=== PATIENT | female | born 1990 | race Caucasian/White ===

== ENCOUNTER 2021-12-12 16:40 | Emergency (ER) | payer BC ==
[~2021-12-12] VITALS: Ht 162.6 cm; Wt 70.2 kg
[2021-12-12 16:51] VITALS: BP 126/74
[2021-12-12] MEDS ORDERED: acetaminophen 325mg tablet PO STA (16:56)
[2021-12-12] MEDS ORDERED: normal saline 1000ML IV soln IV ONE (17:00)
[2021-12-12 17:22] LABS: URINE HCG NEGATIVE (NEG)
[2021-12-12 17:24] LABS: BASOPHILS % (AUTO) 0.4 % (0-1); EOSINOPHILS # (AUTO) 0.1 X10'3 (0-0.9); EOSINOPHILS % (AUTO) 0.6 % (0-6); HEMOGLOBIN 13.3 g/dl (12.0-16.0); LYMPHOCYTES # (AUTO) 1.2 X10'3 (1.1-4.8); LYMPHOCYTES % (AUTO) 9.1 % (21-51); MEAN CORPUSCULAR HGB CONC 34.2 g/dL (33.0-36.5); MEAN CORPUSCULAR VOLUME 87.7 FL (78-98); MEAN PLATELET VOLUME 7.3 FL (7.4-10.4); MONOCYTES # (AUTO) 0.6 X10'3 (0-0.9); MONOCYTES % (AUTO) 4.5 % (2-12); NEUTROPHILS # (AUTO) 11.1 X10'3 (1.8-7.7); NEUTROPHILS % (AUTO) 85.4 % (42-75); PLATELET COUNT 290 X10'3 (140-440); RED BLOOD COUNT 4.44 X10'6 (4.20-5.60); RED CELL DISTRIBUTION WIDTH 12.8 % (11.5-14.5)
[2021-12-12 17:25] LABS: CLARITY,URINE CLOUDY (Clear); GLUCOSE, URINE NEGATIVE (Neg); KETONES,URINE NEGATIVE (Neg); LEUKOCYTE ESTERASE ,URINE MODERATE (Neg); NITRITES, URINE NEGATIVE (Neg); OCCULT BLOOD,URINE MODERATE (Neg); PH,URINE 7.5 (4.8-8.0); PROTEIN,URINE NEGATIVE (Neg); UROBILINOGEN,URINE 0.2 E.U/dL (0.2-1.0)
[2021-12-12 17:28] LABS: COLOR,URINE STRAW (Yellow); UA COLLECTION TYPE CLN CATCH MIDSTREAM
[2021-12-12 17:30] LABS: SQUAMOUS EPITHELIAL CELL,UR FEW /LPF (FEW)
[2021-12-12] MEDS ORDERED: ondansetron/PF 4mg/2ml inj IV ONE (17:30)
[2021-12-12] MEDS ORDERED: normal saline 1000ML IV soln IVB ONE (17:30)
[2021-12-12] MEDS ORDERED: morphine 4 MG/ML inj SYRINge IV PRN (17:30)
[2021-12-12 17:31] LABS: BACTERIA,URINE 1+ /HPF (Neg); RBC,URINE 0-2 /HPF (0-2); WBC CLUMPS,URINE FEW /HPF (NEGATIVE); WBC,URINE 20-30 /HPF (0-4)
[2021-12-12 17:34] LABS: ALANINE AMINOTRANSFERASE 38 U/L (12-78); ALKALINE PHOSPHATASE 68 IU/L (46-116); ANION GAP 8 (8-16); ASPARTATE AMINO TRANSFERASE 19 U/L (10-37); BILIRUBIN,TOTAL 0.5 MG/DL (0.1-1.0); BLOOD UREA NITROGEN 12 MG/DL (7-18); BUN/CREATININE RATIO 16.4 (6.6-38.0); CALCIUM 8.8 MG/DL (8.5-10.1); CHLORIDE 105 MMOL/L (99-107); CREATININE 0.73 MG/DL (0.40-0.90); GLUCOSE 89 MG/DL (70-104); POTASSIUM 3.7 MMOL/L (3.5-5.1); SODIUM 140 MMOL/L (135-145); TOTAL CARBON DIOXIDE 27.3 MMOL/L (24-32); eGFR > 90 ML/MIN
[2021-12-12] MEDS ORDERED: iohexol 300mg/ml 100ml inj. ONE (17:40)
--- NOTE | 2021-12-12 17:53 | NUR ---
To CT via [facility].
[2021-12-12] MEDS ORDERED: CefTRIAXone 2gm/D5W 50ml BAG 50 ML IV ONE (18:10)
[2021-12-12] MEDS ORDERED: CEPH-585 PO (19:30)
[2021-12-12] MEDS ORDERED: cephalexin 250mg capsule PO ONE (19:30)
== END 2021-12-12 20:07 | disposition home or self-care (01) ==
LOC: ER 16:41
DX: N39.0 Urinary tract infection, site not specified (principal); R42 Dizziness and giddiness; R10.84 Generalized abdominal pain; R11.0 Nausea; N94.6 Dysmenorrhea, unspecified; Z72.89 Other problems related to lifestyle; Z79.2 Long term (current) use of antibiotics
CPT/HCPCS: 36415; 71045; 74177; 80053; 81001; 81025; 83605; 84145; 85025; 87040; 87077; 87088; 87186; 96361; 96365; 96375; 99285; J0696; J2270; J2405; J7030; Q9967